=== PATIENT | female | born 1960 | race African-American/Black ===

== ENCOUNTER 2019-06-27 01:28 | Emergency (ER) | payer OTHER ==
[~2019-06-27] VITALS: Ht 157.5 cm; Wt 111.8 kg
[2019-06-27 01:32] VITALS: Ht 157.5 cm; Wt 111.8 kg
[2019-06-27 02:05] VITALS: BP 137/88
== END 2019-06-27 02:05 | disposition home or self-care (01) ==
LOC: ED 01:28
DX: S60.562A Insect bite (nonvenomous) of left hand, initial encounter (principal); S60.561A Insect bite (nonvenomous) of right hand, initial encounter; S80.862A Insect bite (nonvenomous), left lower leg, initial encounter; S80.861A Insect bite (nonvenomous), right lower leg, initial encounter; J45.909 Unspecified asthma, uncomplicated; E78.00 Pure hypercholesterolemia, unspecified; W57.XXXA Bitten or stung by nonvenomous insect and other nonvenomous arthropods, initial encounter; Y93.89 Activity, other specified; Y92.89 Other specified places as the place of occurrence of the external cause; Y99.8 Other external cause status
CPT/HCPCS: J7512

== ENCOUNTER 2019-07-09 02:00 | Emergency (ER) | payer OTHER ==
[~2019-07-09] VITALS: Ht 160 cm; Wt 109.3 kg
[2019-07-09 02:05] VITALS: Ht 160 cm; Wt 109.3 kg
[2019-07-09 03:17] VITALS: BP 151/71
== END 2019-07-09 03:17 | disposition home or self-care (01) ==
LOC: ED 02:00
DX: R21 Rash and other nonspecific skin eruption (principal); E78.00 Pure hypercholesterolemia, unspecified; J45.909 Unspecified asthma, uncomplicated; Z90.49 Acquired absence of other specified parts of digestive tract
CPT/HCPCS: J1885